=== PATIENT | male | born 1995 | race Caucasian/White ===

== ENCOUNTER 2023-09-10 12:19 | Emergency (ER) | payer MEDICARE, MEDICAID ==
--- NOTE | 2023-09-10 13:36 | ED Physician Documentation ---
PD HPI LOWER EXT INJURY - Stated complaint Stated Complaint: RT TOE INJ - Chief complaint Chief Complaint: Ext Problem - History obtained from History obtained from: Patient, Family (mother) - History of Present Illness PD HPI LOW EXT INJURY LOCATION: Right, Toe (great toe has had pain, redness and some drainage from corner intermittently over past 4-6 weeks. Given abx PO couple of times, and to have soaks. Apparent ingrown toenail and had corner scissored once. Nail is loose with some drainage again. Office referred pt to ER.) Where injury occurred: Home Timing - details: Gradual onset, Waxing and waning (ingrown nail apparently for 4-6 weeks. with paronychial infection recurring.) Associated symptoms: Swelling, Discolored (red) Recently seen: Clinic (with Rx for oral abx sulfa.) PD PAST MEDICAL HISTORY - Past Medical History Past Medical History: Yes Cardiovascular: High cholesterol Respiratory: None Neuro: Seizure disorder Endocrine/Autoimmune: HyPOthyroidism GI: None : None HEENT: None Musculoskeletal: None Derm: None Other Past Medical History: developmental delay - Past Surgical History Past Surgical History: No - Present Medications Home Medications: Ambulatory Orders Medication Instructions Recorded Confirmed Doxycycline Hyclate 100 mg PO BID 7 Days #10 cap 09/10/23 Escitalopram Oxalate 5 mg PO DAILY 09/10/23 09/10/23 Levothyroxine Sodium 50 mcg PO DAILY 09/10/23 09/10/23 Mupirocin 2% Oint [Bactroban 2% 1 applic TOP TID #15 gm 09/10/23 Oint] Rosuvastatin Calcium 10 mg PO DAILY 09/10/23 09/10/23 lamoTRIgine [Lamictal] 150 mg PO BID 09/10/23 09/10/23 - Allergies Allergies/Adverse Reactions: Allergies Allergy/AdvReac Type Severity Reaction Status Date / Time cefprozil [From Cefzil] Allergy Rash Verified 09/10/23 12:45 - Social History Does the pt smoke?: No Smoking Status: Never smoker Does the pt drink ETOH?: No Does the pt have substance abuse?: No - Immunizations Immunizations are current?: No Immunizations: Other immun not current PD ED PE NORMAL - Vitals Vital signs reviewed: Yes - General General: Alert and oriented X 3, Well developed/nourished - Derm Derm: Normal color, Warm and dry - Extremities Extremities: Other (right great ote with redness and tenderness of tissue in corners. Mild drainage from nychial fold area. The nail is loose distally and liftable. ) Results - Vitals Vitals: Vital Signs - 24 hr 09/10/23 09/10/23 12:46 15:46 Temperature 36.3 C L Heart Rate 98 74 Respiratory 18 18 Rate Blood Pressure 115/71 122/84 H O2 Saturation 97 98 Oxygen O2 Source Room air Procedures - General procedure General procedure: nail was loose but still attached at proximal area. Redness and swelling there. Discussed with mother and pt and they were in agreement of nail removal. Anesth lcoal with lido/epi. Then blunt dissection to lift the proximal tissue from the proximal nail until removed. Mild purulence cleared with cleansing from the nychial fold. The new nail was actually starting to erupt under the old nail. Departure - Departure Disposition: 01 Home, Self Care Clinical Impression: Paronychia Condition: Stable Record reviewed to determine appropriate education?: Yes Follow-Up: Patel Naranjo [Primary Care Provider] - Prescriptions: Mupirocin 2% Oint [Bactroban 2% Oint] 1 applic TOP TID #15 gm Doxycycline Hyclate 100 mg PO BID 7 Days #10 cap Comments: I think with the loose toenail off, will allow for better cleansing and removal of the trapped germs under the base. Your new nail is already starting to grow out a bit but the nailbed is still soft so we will be a bit tender. Cleanse the area once or twice daily and apply mupirocin antibiotic ointment lightly to the area. He can have it bandaged to protect it as needed. There will be some soreness so Tylenol ibuprofen as needed. There is still appearing a little bit of residual infection in the tissue so doxycycline twice daily for 5 days. This should become less raw and irritated over the next several days to week and then the new nail will take a month or 2 to grow in to that space. Recheck if not healing well along the way. I sent your prescriptions to your preferred pharmacy. Forms: PCP List Discharge Date/Time: 09/10/23 14:58
[2023-09-10 15:55] VITALS: BP 122/84; O2SAT 98
== END 2023-09-10 14:58 | disposition home or self-care (01) ==
LOC: ED 12:19
DX: L03.031 Cellulitis of right toe (principal); E78.00 Pure hypercholesterolemia, unspecified; E03.9 Hypothyroidism, unspecified; Z79.899 Other long term (current) drug therapy
CPT/HCPCS: 11730; 99282; 99283